=== PATIENT | female | born 1995 ===

== ENCOUNTER 2018-04-29 23:14 | Emergency (ER) | payer MEDICAID ==
[2018-04-30 00:17] VITALS: TEMP 98.2; O2SAT 98
--- NOTE | 2018-04-30 00:38 | C.PDOC ---
History Of Present Illness 23 year old female with no PMHx presents to the ED accompanied by friend c/o cough associated with nasal congestion and rhinorrhea for the past month. Patient reports she took cough syrup couple of times. Patient has positive sick contact in her friend with similar symptoms. Patient denies fever, chills, headache, CP, SOB, palpitations, rash, nausea, vomit, diarrhea, recent travel. Time Seen by Provider: 04/30/18 00:22 Chief Complaint (Nursing): Cough, Cold, Congestion History Per: Patient History/Exam Limitations: no limitations Onset/Duration Of Symptoms: Persistent (month) Current Symptoms Are (Timing): Still Present Location Of Pain: Throat Associated Symptoms: Cough, Sinus Drainage, Nasal Congestion. denies: Fever, Ch ills, Vomiting, Diarrhea Ear Symptoms: Bilateral: None Recent travel outside of the [place]: No Additional History Per: Patient Past Medical History Reviewed: Historical Data, Nursing Documentation, Vital Signs Vital Signs: Last Vital Signs Temp 98.2 F 04/29/18 23:39 Pulse 91 H 04/29/18 23:39 Resp 20 04/29/18 23:39 BP 124/79 04/29/18 23:39 Pulse Ox 98 04/29/18 23:39 - Medical History PMH: No Chronic Diseases Surgical History: No Surg Hx Family History: States: Unknown Family Hx - Social History Hx Alcohol Use: No Hx Substance Use: No Review Of Systems Constitutional: Negative for: Fever, Chills Eyes: Negative for: Vision Change ENT: Positive for: Nose Discharge, Nose Congestion. Negative for: Throat Pain, Throat Swelling Cardiovascular: Negative for: Chest Pain, Palpitations Respiratory: Positive for: Cough. Negative for: Shortness of Breath, Sputum Gastrointestinal: Negative for: Nausea, Vomiting, Abdominal Pain Skin: Negative for: Rash Neurological: Negative for: Weakness, Numbness, Headache, Dizziness Physical Exam - Physical Exam Appears: Non-toxic, No Acute Distress Skin: Normal Color, Warm, Dry Head: Atraumatic, Normacephalic Eye(s): bilateral: Normal Inspection Nose: Discharge (right nostril), Other (enlarged right turbinate) Oral Mucosa: Moist Throat: Normal, No Erythema, No Exudate, No Drooling Neck: Normal ROM, Trachea Midline, Supple Chest: Symmetrical Cardiovascular: Rhythm Regular Respiratory: Normal Breath Sounds, No Rales, No Rhonchi, No Wheezing Gastrointestinal/Abdominal: Soft, No Tenderness, No Guarding, No Rebound, Other (obese) Extremity: Normal ROM, No Tenderness, Capillary Refill (< 2 seconds), No Swelling Pulses: Left Radial: Normal, Right Radial: Normal Neurological/Psych: Oriented x3, Normal Speech, Normal Cognition Gait: Steady ED Course And Treatment O2 Sat by Pulse Oximetry: 98 (ON RA) Pulse Ox Interpretation: Normal Disposition Counseled Patient/Family Regarding: Diagnosis, Need For Followup - Disposition Referrals: [facility] [Outside] [facility] [Outside] Disposition: HOME/ ROUTINE Disposition Time: 00:38 Condition: STABLE Additional Instructions: ANALI PEDERSEN, thank you for letting us take care of you today. Your provider was Renae Hemphill MD and you were treated for COUGH. The emergency medical care you received today was directed at your acute symptoms. If you were prescribed any medication, please fill it and take as directed. It may take several days for your symptoms to resolve. Return to the Emergency Department if your symptoms worsen, do not improve, or if you have any other problems. Please contact your doctor or call one of the physicians/clinics you have been referred to that are listed on the Patient Visit Information form that is included in your discharge packet. Bring any paperwork you were given at discharge with you along with any medications you are taking to your follow up visit. Our treatment cannot replace ongoing medical care by a primary care provider outside of the emergency department. Thank you for allowing the [facility] team to be part of your care today. Prescriptions: Cetirizine HCl/Pseudoephedrine [Zyrtec-D Tablet] 1 each PO DAILY #14 tab.[id number] Instructions: Upper Respiratory Infection (ED) Forms: Agent Partner (Swedish), General Discharge Instructions - Clinical Impression Clinical Impression: Upper respiratory infection - PA / MANAGER MEDICA[employer] / Resident Statement MD/DO has reviewed & agrees with the documentation as recorded. - Scribe Statement The provider has reviewed the documentation as recorded by the Scribe Romaine Hidalgo All medical record entries made by the Scribe were at my direction and personally dictated by me. I have reviewed the chart and agree that the record accurately reflects my personal performance of the history, physical exam, medical decision making, and the department course for this patient. I have also personally directed, reviewed, and agree with the discharge instructions and disposition.
[2018-04-30 00:54] VITALS: BP 128/69; PULSE 78; RESP 16
== END 2018-04-30 00:53 | disposition home or self-care (01) ==
LOC: C.ER 23:14
DX: J06.9 Acute upper respiratory infection, unspecified (principal); F17.210 Nicotine dependence, cigarettes, uncomplicated